=== PATIENT | female | born 1970 | race Caucasian/White ===

== ENCOUNTER 2016-09-01 14:01 | Emergency (ER) | payer MEDICARE, OTHER | END 2016-09-01 15:24 | disposition home or self-care (01) | LOC: FER 14:01 | DX: S40.872A Other superficial bite of left upper arm, initial encounter (principal); Z23 Encounter for immunization; W55.01XA Bitten by cat, initial encounter; Y92.009 Unspecified place in unspecified non-institutional (private) residence as the place of occurrence of the external cause | CPT/HCPCS: 90471; 90715 ==

== ENCOUNTER → 2022-01-25 | Day surgery (SDC) | payer OTHER ==
[~2022-01-25] VITALS: Ht 154.9 cm; Wt 99.8 kg
[~2022-01-25] MED LIST: ASCORBIC ACID500 MG PO; LINZESS145 MCG PO; MAG-OXIDE 400M400 MG PO; MELATONIN5 M2 PO; METFORMIN HCL500 MG PO; PAXIL20 MG PO; PRINIVIL10 MG PO; SINGULAIR10 MG PO; VITAMIN B COMP1 EAC3 PO; VITAMIN D325 MC2 PO; VITAMIN E400 UNI4 PO; ZINC50 M2 PO; ZOLPIDEM 5MG TAB5 MG PO
[2022-01-25 08:00] LABS: HCG (URINE) SCREEN NEGATIVE (NEGATIVE)
== END | disposition home or self-care (01) ==
LOC: FAS 07:44
PROVIDERS: Student in an Organized Health Care Education/Training Program
DX: Z12.11 Encounter for screening for malignant neoplasm of colon (principal); K59.09 Other constipation; D12.4 Benign neoplasm of descending colon; K57.30 Diverticulosis of large intestine without perforation or abscess without bleeding; K64.8 Other hemorrhoids; I10 Essential (primary) hypertension; E66.9 Obesity, unspecified; E11.9 Type 2 diabetes mellitus without complications; Z80.0 Family history of malignant neoplasm of digestive organs; Z88.1 Allergy status to other antibiotic agents; Z88.2 Allergy status to sulfonamides; Z88.8 Allergy status to other drugs, medicaments and biological substances; Z68.41 Body mass index [BMI] 40.0-44.9, adult
CPT/HCPCS: 84703; J2250; J2704; J7120